=== PATIENT | female | born 1980 | race Caucasian/White ===

== ENCOUNTER 2021-09-02 08:01 | Emergency (ER) | payer OTHER ==
[~2021-09-02] VITALS: Ht 157.5 cm; Wt 49.1 kg
[2021-09-02 08:01] VITALS: BP 126/83
--- NOTE | 2021-09-02 08:32 | PHYS DOC ---
General Adult EDM: Chief Complaint: FEVER HPI: HPI: 41-year-old female presents with fever, body aches, fatigue. She just got her influenza vaccine late afternoon. She developed a fever overnight last night up to 100.5. She is feeling generally achy and fatigued. She hopes that it is just a reaction to the vaccine, but she knows this is the age of COVID-19 so she wants to make sure she does not have that. She is fully vaccinated against Covid but her second dose was more than 8 months ago. She denies nausea, vomiting, shortness of breath, chest pain. Review of Systems: Review of Systems: Constitutional: Fever, body aches, fatigue. Eyes: Denies change in visual acuity HENT: Denies nasal congestion or sore throat Respiratory: Denies cough or shortness of breath Cardiovascular: Denies chest pain or edema GI: Denies abdominal pain, nausea, vomiting, bloody stools or diarrhea : Denies dysuria Musculoskeletal: Denies back pain or joint pain Integument: Denies rash Neurologic: Denies headache, focal weakness or sensory changes Endocrine: Denies polyuria or polydipsia Lymphatic: Denies swollen glands Psychiatric: Denies depression or anxiety Physical Exam: PE: Constitutional: Well developed, well nourished, no acute distress, non-toxic appearance. [] HENT: Normocephalic, atraumatic, bilateral external ears normal, oropharynx moist, no oral exudates, nose normal. [] Eyes: PERRLA, EOMI, conjunctiva normal, no discharge. [] Neck: Normal range of motion, no tenderness, supple, no stridor. [] Cardiovascular:Heart rate regular rhythm, no murmur [] Lungs & Thorax: Bilateral breath sounds clear to auscultation [] Abdomen: Bowel sounds normal, soft, no tenderness, no masses, no pulsatile masses. [] Skin: Warm, dry, no erythema, no rash. [] Back: No tenderness, no CVA tenderness. [] Extremities: No tenderness, no cyanosis, no clubbing, ROM intact, no edema. [] Neurologic: Alert and oriented X 3, normal motor function, normal sensory function, no focal deficits noted. [] Psychologic: Affect normal, judgement normal, mood normal. [] EKG: EKG: [] Radiology/Procedures: Radiology/Procedures: [] Impressions: EXAM: CHEST ONE VIEW. HISTORY: Fever, cough. COMPARISON: None. FINDINGS: A frontal view of the chest is obtained. The lungs are expanded to the 12th posterior ribs. There are no confluent infiltrates. There is no pneumothorax or pleural effusion. The heart is not enlarged. There is a mild to moderate thoracolumbar dextroscoliosis. IMPRESSION: 1. Hyperinflation most likely reflects deep inspiratory effort. Correlate to exclude air trapping. No confluent infiltrates. Electronically signed by: Leopoldo Rodriguez MD (09/02/2021 8:45 AM) [facility] DICTATED AND SIGNED BY: GEMINI RODRIGUEZ MD DATE: 09/02/21843 CC: ANANT CALZADA DO; JAD HATHAWAY ~MTH0 0 Heart Score: C/O Chest Pain: N/A Risk Factors: Risk Factors: DM, Current or recent (<one month) smoker, HTN, HLP, family history of CAD, obesity. Risk Scores: Score 0 - 3: 2.5% MACE over next 6 weeks - Discharge Home Score 4 - 6: 20.3% MACE over next 6 weeks - Admit for Clinical Observation Score 7 - 10: 72.7% MACE over next 6 weeks - Early Invasive Strategies Course & Med Decision Making: Course & Med Decision Making Pertinent Labs and Imaging studies reviewed. (See chart for details) The patient's chest x-ray is negative for acute findings. Her labs are unremarkable. This is likely normal reaction to her vaccination. She is stable for discharge at this time. Covid testing is pending, likely resulted to terra. [] Dragon Disclaimer: Heaven Disclaimer: This electronic medical record was generated, in whole or in part, using a voice recognition dictation system. Departure Departure: Impression: Primary Impression: Vaccine reaction Disposition: HOME / SELF CARE / HOMELESS Condition: STABLE Referrals: JAD HATHAWAY (PCP) Patient Instructions: Influenza Virus Vaccine injection ANANT CALZADA DO Sep 02, 2021 08:32
--- NOTE | 2021-09-02 08:47 | RAD ---
EXAM: CHEST ONE VIEW. HISTORY: Fever, cough. COMPARISON: None. FINDINGS: A frontal view of the chest is obtained. The lungs are expanded to the 12th posterior ribs. There are no confluent infiltrates. There is no pn eumothorax or pleural effusion. The heart is not enlarged. There is a mild to moderate thoracolumbar dextroscoliosis. IMPRESSION: 1. Hyperinflation most likely reflects deep inspiratory effort. Correlate to exclude air trapping. No confluent infiltrates. Electronically signed by: Leopoldo Rodriguez MD (09/02/2021 8:45 AM) [facility]
[2021-09-02 09:15] LABS: BASO % 0 % (0-3); EOS % 0 % (0-3); HEMOGLOBIN 14.2 g/dL (12.0-15.5); LYMPH # 0.8 x10^3/uL (1.0-4.8); LYMPH % 9 % (24-48); MEAN CORPUSCULAR HEMOGLOBIN 31 pg (25-35); MEAN CORPUSCULAR HGB CONC 34 g/dL (31-37); MEAN CORPUSCULAR VOLUME 92 fL (79-100); MONO # 0.6 x10^3/uL (0.0-1.1); MONO % 6 % (0-9); NEUT % 85 % (31-73); PLATELET COUNT 204 x10^3/uL (140-400); RED BLOOD COUNT 4.58 x10^6/uL (3.50-5.40); RED CELL DISTRIBUTION WIDTH 12.6 % (11.5-14.5); WHITE BLOOD COUNT 9.4 x10^3/uL (4.0-11.0)
[2021-09-02 09:18] LABS: ALBUMIN/GLOBULIN RATIO 1.1 (1.0-1.7); CREATININE 0.7 mg/dL (0.6-1.0); GFR 91.8; POTASSIUM 3.7 mmol/L (3.5-5.1); TOTAL PROTEIN 7.7 g/dL (6.4-8.2)
== END 2021-09-02 09:48 | disposition home or self-care (01) ==
LOC: ER 08:01
DX: T88.1XXA Other complications following immunization, not elsewhere classified, initial encounter (principal); Z20.822 Contact with and (suspected) exposure to COVID-19
CPT/HCPCS: 71045; 80053; 85025; 99284; C9803; U0003